=== PATIENT | female | born 1940 | race Two or more races ===

== ENCOUNTER 2017-08-01 09:44 | Outpatient (CLI) | payer OTHER | END 2017-08-01 12:22 | disposition home or self-care (01) | LOC: RAD 501 09:44 → RAD 09:44 | DX: M16.0 Bilateral primary osteoarthritis of hip (principal); M17.12 Unilateral primary osteoarthritis, left knee ==

== ENCOUNTER 2017-08-07 10:08 | Outpatient (CLI) | payer OTHER | END 2017-08-07 10:22 | disposition home or self-care (01) | LOC: MRI 10:08 | DX: M25.462 Effusion, left knee (principal) | CPT/HCPCS: 73718 ==

== ENCOUNTER 2023-06-05 09:31 | Emergency (ER) | payer OTHER ==
[~2023-06-05] VITALS: Ht 162.6 cm; Wt 54.4 kg
== END 2023-06-05 14:51 | disposition home or self-care (01) ==
LOC: ER 09:31
DX: T31.11 Burns involving 10-19% of body surface with 10-19% third degree burns (principal); G30.9 Alzheimer's disease, unspecified; F02.80 Dementia in other diseases classified elsewhere, unspecified severity, without behavioral disturbance, psychotic disturbance, mood disturbance, and anxiety

== ENCOUNTER 2024-08-23 16:02 | Emergency (ER) | payer OTHER ==
[~2024-08-23] VITALS: Ht 154.9 cm; Wt 41.7 kg
[2024-08-23] MEDS ORDERED: AVAPRO300 MG PO (16:18)
[2024-08-23] MEDS ORDERED: CHILDREN'S ASPI81 MG PO (16:18)
[2024-08-23] MEDS ORDERED: MEMANTINE HCL5 MG PO (16:19)
[2024-08-23] MEDS ORDERED: FERROUS SULFAT325 MG PO (16:19)
[2024-08-23] MEDS ORDERED: CITALOPRAM HBR10 MG PO (16:19)
[2024-08-23] MEDS ORDERED: MONTELUKAST SODIUM 10 MG TABLET PO ONE (17:15)
[2024-08-23] MEDS ORDERED: GUAIFENESIN 200 MG/10 ML BLIST.PACK PO ONE ×2 (17:15→17:41)
[2024-08-23 19:34] LABS: HEMATOCRIT 40.1 % (36.0-45.00); HEMOGLOBIN 13.2 g/dL (12.0-15.00); MEAN CELL VOLUME 92.9 fL (80.00-100.00); MEAN CORPUSCULAR HEMOGLOBIN 30.7 pg (27.00-32.0); PLATELET COUNT 158 K/uL (150-450); RED BLOOD COUNT 4.31 M/uL (4.00-6.00); RED CELL DISTRIBUTION WIDTH 13.2 % (11.5-14.5)
[2024-08-23] MEDS ORDERED: BENZONATATE200 M1 PO (20:24)
[2024-08-23] MEDS ORDERED: SINGULAIR10 MG PO (20:24)
== END 2024-08-23 20:56 | disposition home or self-care (01) ==
LOC: ER 16:05
PROVIDERS: General Practice
DX: M54.9 Dorsalgia, unspecified (principal); R09.81 Nasal congestion; Z88.0 Allergy status to penicillin; I10 Essential (primary) hypertension; Z93.3 Colostomy status; Z20.822 Contact with and (suspected) exposure to COVID-19; M85.88 Other specified disorders of bone density and structure, other site

== ENCOUNTER 2025-06-23 10:25 | Emergency (ER) | payer OTHER ==
[~2025-06-23] VITALS: Ht 152.4 cm; Wt 56.7 kg
[~2025-06-23 10:25] MED LIST: AVAPRO300 MG PO; BENZONATATE200 M1 PO; CHILDREN'S ASPI81 MG PO; CITALOPRAM HBR10 MG PO; FERROUS SULFAT325 MG PO; MEMANTINE HCL5 MG PO; SINGULAIR10 MG PO
[2025-06-23 14:46] LABS: BASO % 0.5 % (0.1-1.2); EOS # 0.01 (0.04-0.54); EOS % 0.5 % (0.7-7.0); LYMPH # 0.92 (1.18-3.74); LYMPH % 48.2 % (19.3-53.1); MEAN PLATELET VOLUME 11.50 fl (9.4-12.4); MONO # 0.34 (0.24-0.82); NEUT # 0.62 (1.56-6.13); NEUT % 32.5 % (34.0-71.1); RED CELL DISTRIBUTION WIDTH 12.3 % (11.6-14.4)
[2025-06-23 14:49] LABS: MONO % 17.8 % (4.7-12.5)
[2025-06-23 15:05] LABS: URINE APPEARANCE Clear; URINE BILIRRUBIN Negative (NEGATIVE); URINE BLOOD Negative; URINE COLOR Yellow; URINE GLUCOSE Negative (NEGATIVE); URINE KETONE Negative (NEGATIVE); URINE LEUKOCYTE Small; URINE NITRATE Negative; URINE PROTEIN 30 (NEGATIVE); URINE UROBILINOGEN 0.2 E.U./dl
[2025-06-23 15:06] LABS: URINE BACTERIA 66.3 uL (0.0-1933); URINE EPITHELIAL CELLS 8.8 uL (0.0-38.8); URINE RBC 51.4 uL (0.0-20.8); URINE WBC 57.4 uL (0.0-23.2)
[2025-06-23 15:07] LABS: ALT/SGPT 36.0 U/L (12-78); AST/SGOT 51.0 U/L (15-37); BILIRUBIN TOTAL 0.47 mg/dL (0.3-1.2); BUN CREA RATIO 16.0 (7.0-25.0); CREATININE SERUM 1.01 mg/dL (0.55-1.02); GFR 52.22; GLOBULINA 4.0 G/DL (2.4-3.5); GLUCOSE FASTING 135.0 mg/dL (65-100); OSMOLALITY SERUM 275.0 MOSM/KG (275-295)
[2025-06-23 15:13] LABS: URINE CAST 1.27 uL (0.0-1.40)
== END 2025-06-23 19:44 | disposition home or self-care (01) ==
LOC: ER 10:25
PROVIDERS: Preventive Medicine Public Health & General Preventive Medicine
DX: R42 Dizziness and giddiness (principal); Z88.0 Allergy status to penicillin; Z93.3 Colostomy status; G30.8 Other Alzheimer's disease; F02.80 Dementia in other diseases classified elsewhere, unspecified severity, without behavioral disturbance, psychotic disturbance, mood disturbance, and anxiety; W18.39XA Other fall on same level, initial encounter; Y93.89 Activity, other specified; Y92.89 Other specified places as the place of occurrence of the external cause; D72.819 Decreased white blood cell count, unspecified